=== PATIENT | female | born 1965 ===

== ENCOUNTER 2023-12-07 16:21 | Emergency (ER) | payer OTHER, SELFPAY ==
[2023-12-07 16:23] VITALS: BP 165/87
[2023-12-07 16:50] VITALS: BMI 19.6
--- NOTE | 2023-12-07 18:49 | ED.SKININJ ---
Addendum entered and electronically signed by Cheryl Man NP 01/05/24 23:24:
Discharge diagnosis incorrectly documented as left forearm. Correct diagnosis is nodule of RIGHT forearm.
Original Note:
HPI-Injury
General
Chief Complaint: Skin Problem
Source: patient
Exam Limitations: none
Time Seen by Provider: 12/07/23 17:18
Nursing documentation reviewed up to this point in time: agreed with
History of Present Illness-Injury
Is this injury a work related problem?: No
Is pt an associate of [facility]?: No
Initial Injury comments:
Patient to ED wtih complaint of large lump to right forearm. Symptoms started approx 2 weeks ago. No known trauma. Denies any pain. She was seen at last week and placed on antibiotics without improvement. Brought self to ED tonight for
further evaluation
Past History
Past History
ED Past Medical History: None
ED Past Surgical History: None
Review of Systems
Review of Systems
Allergies reviewed?: Yes
All Other Systems: ROS reviewed and negative except as documented in HPI and ROS
Constitutional: Reports no symptoms
Musculoskeletal: Reports no symptoms
Skin: Reports other (2.5cm round mass to right forearm. No erythema. No pain. Faint bruising noted)
Neurological: Reports no symptoms
Psychiatric: Reports no symptoms
Phy Exam
General Physical Exam
General Presentation: well appearing and no apparent distress
General age: appears stated age
General Skin: warm and dry
General Habitus: normal
General Mental: alert
Musculoskeletal Exam
Musculoskeletal Exam: full ROM and neuro vasc intact
Skin Exam
Skin Exam: other (2.5cm round mass right forearm. appearance of fading bruise. No erythema. No pain at site.)
Psychiatric Exam
Psychiatric Exam: normal mood/affect
Course
Orders/Labs/Results
Orders:
Orders
12/07/23 17:21
Non Vasc Upper Exr Right US [US Non Vasc UPPER Ext RT] Urgent
Comment:
Reason For Exam: mass right forearm
Vital Signs
Initial and Last Documented VS:
Initial Vital Signs
Pulse Resp BP Pulse Ox
63 18 165/87 99
12/07/23 16:23 12/07/23 16:23 12/07/23 16:23 12/07/23 16:23
Last Documented Vital Signs
Pulse Resp BP Pulse Ox
63 18 165/87 99
12/07/23 16:23 12/07/23 16:23 12/07/23 16:23 12/07/23 16:23
*Radiology
Radiology exam reviewed: radiology read reviewed
*Pulse Oximetry
Patient hypoxic: no
*Critical Care Note
Total Time (30-74mins, 75-104mins- exclusive of procedures): Not Applicable
ED Attending Note
-
Portions of this chart may have been created with voice recognition software.� Occasional wrong word or��sound alike� substitutions may have occurred due to the inherent limitations of voice recognition software.
Discharge Plan
Departure
Patient Disposition: Home (Routine Discharge)
Date of Disposition: 12/07/23
Time of Disposition: 18:43
Patient with high blood pressure during this ER visit?: No
Condition: Good
Discharge Problem:
Nodule of skin of left forearm
Instructions: Hematoma
Referrals:
Lea Trejo CRNP [Family Provider] -
Satish Billy MD [Active] - (General surgery)
Remedios Onofre MD [Consulting Staff] - (Dermatology)
Activity Restrictions/Additional Instructions:
Return to the emergency department immediately for fever/chills, redness/increased swelling/increasing pain, or for any further concerns.
Interventions
Interventions:
*Risk Screen - Suicide Last Done: 12/07/23 16:49
*General Assessment Last Done: 12/07/23 16:49
*Neglect/Abuse Screening Last Done: 12/07/23 16:49
ED- Fall Risk Assessment Last Done: 12/07/23 16:50
*ED COVID-19 Vaccine History Last Done: 12/07/23 16:49
ED-Skin Assessment Last Done: 12/07/23 16:52
Discharge Date and Time
Print Language: LATVIAN
== END 2023-12-07 19:11 | disposition home or self-care (01) ==
LOC: EMR 16:21
PROVIDERS: EMERGENCY PHYSICIAN Emergency Medicine; FAMILY PHYSICIAN Nurse Practitioner Family
DX: R22.31 Localized swelling, mass and lump, right upper limb (principal)
CPT/HCPCS: 76882; 99284